=== PATIENT | male | born 1970 | race Caucasian/White ===

== ENCOUNTER 2017-11-08 18:27 | Emergency (ER) | payer SELFPAY | END 2017-11-09 03:28 | disposition left against medical advice (07) | LOC: ED 18:27 | DX: Z53.21 Procedure and treatment not carried out due to patient leaving prior to being seen by health care provider (principal) ==

== ENCOUNTER 2018-06-05 21:18 | Emergency (ER) | payer SELFPAY ==
[2018-06-05 21:45] VITALS: BP 138/78
[2018-06-05 22:05] LABS: Mean Corpuscular HGB Conc 36 % (32-34); Mean Corpuscular Hemoglobin 31 pg (28-32); Mean Corpuscular Volume 88 fl (84-94); Platelet Count 276 K/mm3 (140-440); Red Blood Count 5.24 M/mm3 (3.65-5.03)
[2018-06-05 22:07] LABS: Hemoglobin 16.4 gm/dl (11.8-15.2)
[2018-06-06 02:22] LABS: Bilirubin,Urine NEG (Negative); Blood,Urine NEG (Negative); Color,Urine Yellow (Yellow); Mucus,Urine FEW /HPF; Protein,Urine <15 mg/dL mg/dL (Negative); Urobilinogen,Urine < 2.0 mg/dL (<2.0); WBC,Urine < 1.0 /HPF (0.0-6.0)
== END 2018-06-06 01:30 | disposition left against medical advice (07) ==
LOC: ED 21:18
DX: R42 Dizziness and giddiness (principal); Z53.21 Procedure and treatment not carried out due to patient leaving prior to being seen by health care provider
CPT/HCPCS: 36415; 80048; 81001; 85027